=== PATIENT | female | born 1980 | race Caucasian/White ===

== ENCOUNTER → 2017-09-06 | Outpatient (CLI) | payer OTHER ==
[~2017-09-06] VITALS: Ht 165.1 cm; Wt 68.0 kg
[~2017-09-06] MED LIST: PRENATAL TABLE1 EAC3 PO; SYNTHROID112 MCG PO
[2017-09-06 10:08] VITALS: BP 129/61
== END | disposition home or self-care (01) ==
LOC: IVINF 09:59
DX: Z34.80 Encounter for supervision of other normal pregnancy, unspecified trimester (principal); Z31.82 Encounter for Rh incompatibility status; Z3A.00 Weeks of gestation of pregnancy not specified; Z67.91 Unspecified blood type, Rh negative
CPT/HCPCS: J2790